=== PATIENT | male | born 1990 | race Caucasian/White ===

== ENCOUNTER 2016-09-11 06:51 | Emergency (ER) | payer BC, OTHER ==
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
[2016-09-11 10:00] VITALS: BP 118/66
== END 2016-09-11 10:00 | disposition home or self-care (01) ==
LOC: ER 06:51
DX: H66.92 Otitis media, unspecified, left ear (principal); H92.02 Otalgia, left ear; H92.12 Otorrhea, left ear; F17.200 Nicotine dependence, unspecified, uncomplicated
CPT/HCPCS: 99282